=== PATIENT | male | born 1950 | race Caucasian/White ===

== ENCOUNTER 2017-01-26 14:19 | Emergency (ER) | payer OTHER, BC ==
[~2017-01-26] VITALS: Ht 180.3 cm; Wt 87.0 kg
[~2017-01-26 14:19] MED LIST: ADVA250A PO; ALBU8I INH; ALPR0.25 PO; APIX2.5T PO; ENAL20TA81 PO; HYDR-2768 PO; NORC10TA2 PO; SIMV20TA PO
[2017-01-26 14:20] VITALS: BP 145/78; PULSE 79; RESP 18; TEMP 98.1; O2SAT 98
[2017-01-26] MEDS ORDERED: MEDR4PAK PO (17:06)
--- NOTE | 2017-01-26 17:06 | PD ---
HPI Chief Complaint: Pain: Acute or Chronic Time Seen by Provider: 16:45 Travel History International Travel<30 days: No Contact w/Intl Traveler<30days: No Traveled to known affect area: No History of Present Illness HPI 66-year-old male presents emergency department for right upper extremity pain 3 months. Patient is followed by orthopedic doctor. He has had x-rays, MRIs, EMG testing of the extremity. He is currently being treated for ulnar nerve pain. He reports he was given a dose of steroids several weeks ago which improved symptoms. He is requesting steroids at this time. He denies increased swelling of the extremity. He denies decreased sensation of the extremity. Pain severity 10/08. PFSH Past Medical History Arthritis: Yes Asthma: Yes Blood Disorders: Yes (HX OF PE) Anxiety: Yes Heart Rhythm Problems: No Cancer: Yes (PROSTATE--SURGERY AND RADIATION, SKIN) Cardiac Catheterization: Yes (Years ago) Cardiovascular Problems: Yes (HTN) High Cholesterol: Yes Chemotherapy: No Congestive Heart Failure: No Coronary Artery Disease: Yes Diabetes: No Diverticulitis: Yes Endocrine: No Gastrointestinal Disorders: Yes (GERD) GERD: Yes Genitourinary: Yes (BLADDER PUNCTURED IN PROSTATE IMPLANT REVISION 2006) Hepatitis: No Hiatal Hernia: Yes Heparin Induced Thrombocytopen: No Hypertension: Yes Immune Disorder: No Inguinal Hernia: Yes Medical other: No Musculoskeletal: Yes ( BACK PROBLEMS) Neurologic: No Psychiatric: No Reproductive: Yes (HX OF PROSTATE CA, HAS PENILE IMPLANT) Respiratory: Yes (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, PLEURISY 2013) Radiation Therapy: Yes Thyroid Disease: No Tetanus Vaccination: < 5 Years Past Surgical History Abdominal Surgery: Yes (3 HERNIA REPAIRS) AICD: No Body Medical Devices: penile implant &prostate Coronary Artery Bypass Graft: No Eye Surgery: Yes (STEPHEN CATARACT SURGERY) Genitourinary Surgery: Yes (PROSTATECTOMY AND RADIATION FOR PROSTATE CA) Joint Replacement: No Pacemaker: No Prostatectomy: Yes Tonsillectomy: Yes Other Surgery: Yes (left hand and knee) Social History Alcohol Use: No Tobacco Use: No Substance Use: No Allergies-Medications (Allergen,Severity, Reaction): Coded Allergies: No Known Allergies (Verified , 01/26/17) Reported Meds & Prescriptions Reported Meds & Active Scripts Active Medrol Dosepak (Methylprednisolone) 4 Mg Dspk 4 Mg PO DIRECTED Per Pharmacist direction Hctz (Hydrochlorothiazide) 25 Mg Tab 25 Mg PO DAILY Ventolin Hfa (Albuterol Sulfate) 8 Gm Aero 2 Puff INH Q6 * SHAKE WELL BEFORE USE * Reported Gilbert 10-325 mg (Hydrocodone-Acetaminophen 10-325 mg) 1 Tab 1 Tab PO TID Alprazolam 0.25 Mg Tab 0.25 Mg PO BID PRN Eliquis (Apixaban) 2.5 Mg Tab 2.5 Mg PO BID Simvastatin 20 Mg Tab 20 Tab PO HS Advair Diskus 250/50 (Salmeterol Xinafoate/Fluticasone) 250 Mcg/50 Mcg Inhp 1 Puff PO BID Vasotec (Enalapril Maleate) 20 Mg Tab 20 Mg PO BID Review of Systems Except as stated in HPI: all other systems reviewed are Neg Physical Exam Narrative GENERAL: Well-nourished, well-developed patient. In no acute distress. And comfortably on the bed talking with his SKIN: Focused skin assessment warm/dry. No erythema. HEAD: Normocephalic. EYES: No scleral icterus. No injection or drainage. NECK: Supple, trachea midline. No JVD or lymphadenopathy. No cervical midline tenderness. CARDIOVASCULAR: Regular rate and rhythm without murmurs, gallops, or rubs. RESPIRATORY: Breath sounds equal bilaterally. No accessory muscle use. GASTROINTESTINAL: Abdomen soft, non-tender, nondistended. MUSCULOSKELETAL: No cyanosis, or edema. Right upper extremity: TTP to wrist and hand with mild swelling. Arthritic changes noted to all digits on the right hand. 2+ radial ulnar pulse. Extremities warm. Normal sensation. Brisk cap refill. Equal hand grasp. BACK: Nontender without obvious deformity. No CVA tenderness. Data Data Last Documented VS Vital Signs Date Time Temp Pulse Resp B/P (MAP) Pulse Ox O2 Delivery O2 Flow Rate FiO2 01/26/17 14:20 98.1 79 18 145/78 (100) 98 Room Air Orders Orders Splint Or Brace Apply/Monitor (01/26/17 17:06) Ketorolac Inj (Toradol Inj) (01/26/17 17:15) MDM Medical Decision Making Medical Screen Exam Complete: Yes Emergency Medical Condition: Yes Differential Diagnosis Carpal tunnel, arthritis, ulnar nerve pain Narrative Course 66-year-old male with a 3 month history of right upper extremity pain currently being followed by orthopedic. Patient reports he's had symptom improvement in the past with short dose of steroids. Patient denies decreased sensation or function of the extremity. He reports the pain as been constant for 3 months but has increased over the last several days primarily in the wrist and hand. Patient is neurovascularly intact. Patient will be put on a Medrol Dosepak and instructed to follow up with his orthopedic doctor this week. Patient verbalizes understanding and agrees plan Diagnosis Primary Impression: Arthralgia Qualified Codes: M25.531 - Pain in right wrist Referrals: Orthopedist Additional Instructions: Take the medication as directed. Take the steroids with small amount of food with each dose. Use the sling as directed. Make follow-up appointment with orthopedic doctor. Scripts Methylprednisolone Dosepak (Medrol Dosepak) 4 Mg Dspk 4 MG PO DIRECTED, #1 DSPK 0 Refills Per Pharmacist direction Prov: Rox Gutierrez 01/26/17 Disposition: 01 DISCHARGE HOME Condition: Stable Rox Gutierrez Jan 26, 2017 17:06
[2017-01-26] MEDS ORDERED: KETOROLAC TROMETHAMINE 60 MG/2 ML (IM) VIAL IM ONE (17:15)
== END 2017-01-26 17:38 | disposition home or self-care (01) ==
LOC: NEPK 14:19
DX: M25.531 Pain in right wrist (principal); J45.909 Unspecified asthma, uncomplicated; I10 Essential (primary) hypertension
CPT/HCPCS: 96372; 99284; J1885